=== PATIENT | male | born 1990 | race Caucasian/White ===

== ENCOUNTER 2016-10-02 04:52 | Emergency (ER) | payer BC, OTHER ==
[2016-10-02 04:58] VITALS: BP 161/93; PULSE 89; RESP 18; TEMP 97.6
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
== END 2016-10-02 05:33 | disposition home or self-care (01) ==
LOC: EC 04:52
DX: S61.011A Laceration without foreign body of right thumb without damage to nail, initial encounter (principal); W26.0XXA Contact with knife, initial encounter
CPT/HCPCS: 12002; 99282

== ENCOUNTER → 2019-05-28 | Outpatient (CLI) | payer BC ==
--- NOTE | 2019-05-28 20:52 | US ---
EXAMINATION TYPE: US scrotum with doppler. Grayscale and color Doppler Duplex imaging performed of t he scrotum. DATE OF EXAM: 05/28/2019 COMPARISON: NONE CLINICAL HISTORY: N50.811 Right testicular pain for about 2 weeks. No swelling or lump. EXAM MEASUREMENTS: TESTICLES: Right Testicle: 5.3 x 1.9 x 3.0 cm Left Testicle: 4.7 x 1.9 x 3.4 cm EPIDIDYMIS HEAD: Right Epididymis: 0.9 cm Left Epididymis: 0.9 cm Doppler performed to assess for testicular vascularity; good bilateral color flow and waveforms are s een. Presence of hydroceles: No Presence of varicoceles: No Right epididymis appears prominent and slightly hypervascular. Cystic area visualized right epididymi s measuring 0.4 cm. Cystic area visualized left epididymis measuring 0.3 cm Satisfactory blood flow to both testicles on color images. Comparison images towards end of study kushal ws symmetric blood flow. IMPRESSION: Symmetric blood flow to both testicles documented.
== END | disposition home or self-care (01) ==
LOC: RADUSMAIN 17:59
PROVIDERS: ATTEND Family Medicine
DX: N50.811 Right testicular pain (principal)
CPT/HCPCS: 76870; 93975